=== PATIENT | male | born 1980 | race Two or more races ===

== ENCOUNTER → 2024-12-23 | Outpatient (CLI) | payer OTHER, MEDICAID, SELFPAY ==
--- NOTE | 2024-12-23 13:28 | XR_ITS ---
Examination: Left elbow 3 views Technique: Elbow AP, oblique, lateral 3 views Exam date and time: December 23, 2024 1333 hours INDICATIONS: Left elbow pain beginning 5 months ago. FINDINGS: No fracture or dislocation. No elbow effusion IMPRESSION: No fracture or dislocation.
== END | disposition home or self-care (01) ==
PROVIDERS: PCP Registered Nurse Community Health; Referring Provider Registered Nurse Community Health; Visit Provider Registered Nurse Community Health
DX: M25.522 Pain in left elbow (principal); G83.24 Monoplegia of upper limb affecting left nondominant side
CPT/HCPCS: 73080